=== PATIENT | female | born 1980 | race African-American/Black ===

== ENCOUNTER 2017-02-03 18:50 | Inpatient (IN) | payer MEDICAID ==
[2017-02-03 20:48] LABS: APPEARANCE,URINE CLEAR (CLEAR); GLUCOSE, URINE (UA) NEGATIVE (NEGATIVE); KETONES,URINE 15 mg/dL (NEGATIVE); LEUKOCYTE ESTERASE ,URINE NEGATIVE (NEGATIVE); OCCULT BLOOD,URINE NEGATIVE (NEGATIVE); PH,URINE 6.5 (5.0-8.0); PROTEIN,URINE NEGATIVE (NEGATIVE)
[2017-02-03 20:53] LABS: ADD UA MICROSCOPIC NO
[2017-02-03] MEDS ORDERED: AMPICILLIN SODIUM 2 GM/NS 100 ML IV ONE (21:30)
[2017-02-03] MEDS ORDERED: RINGERS SOLUTION,LACTATED 1,000 ML IV SCH (22:38)
[2017-02-03] MEDS ORDERED: RINGERS SOLUTION,LACTATED 1,000 ML IV PRN (22:38)
[2017-02-03] MEDS ORDERED: DINOPROSTONE 10 MG VAGINAL SUPPOSITORY VG ONE (22:45)
[2017-02-03] MEDS ORDERED: FentaNYL CITRATE-PF 100 MCG/2 ML VIAL IVP PRN (22:45)
[2017-02-03] MEDS ORDERED: CITRIC ACID/SODIUM CITRATE 30 ML SOLUTION UDCUP PO PRN (22:45)
[2017-02-03] MEDS ORDERED: METOCLOPRAMIDE HCL 5 MG/ML 2 ML VIAL IVP PRN (22:45)
[2017-02-03 23:32] LABS: BASOPHILS # (AUTO) 0.02 K/uL (0.00-0.20); BASOPHILS % (AUTO) 0.3 % (0.0-2.0); EOSINOPHILS # (AUTO) 0.06 K/uL (0.00-0.70); EOSINOPHILS % (AUTO) 1.04 % (1.0-6.0); HEMATOCRIT 28.1 % (36-46); HEMOGLOBIN 8.9 g/dL (12.0-16.0); LYMPHOCYTES # (AUTO) 0.9 K/uL (1.0-4.8); LYMPHOCYTES % (AUTO) 16.3 % (22.0-44.0); MEAN CORPUSCULAR HEMOGLOBIN 25.5 pg (26.0-34.0); MEAN CORPUSCULAR HGB CONC 31.7 G/dL (31.0-37.0); MEAN CORPUSCULAR VOLUME 81 fL (80-100); MONOCYTES # (AUTO) 0.3 K/uL (0.1-1.0); MONOCYTES % (AUTO) 6.1 % (2.0-9.0); NEUTROPHILS # (AUTO) 4.1 K/uL (1.8-7.7); NEUTROPHILS % (AUTO) 76.2 % (40.0-70.0); RED BLOOD CELL COUNT(AUTO) 3.49 MIL/uL (4.00-5.20); RED CELL DISTRIBUTION WIDTH 20.2 % (11.5-14.5); WHITE BLOOD COUNT (AUTO) 5.3 K/uL (4.5-11.0)
[2017-02-03 23:49] VITALS: BP 100/61
[2017-02-04 00:41] LABS: RUBELLA SCREEN (IGG) IMMUNE (IMMUNE)
[2017-02-04] MEDS ORDERED: AMPICILLIN SODIUM 1 GM/NS 50 ML IV SCH (01:30)
[2017-02-04] MEDS ORDERED: OXYGEN THERAPY IH SCH (08:00)
== END 2017-02-04 03:30 | disposition left against medical advice (07) | DRG 566 ==
LOC: 4S 18:50 → OBSVTOIN 18:50
PROVIDERS: ADMIT Obstetrics & Gynecology; ATTEND Obstetrics & Gynecology
DX: O76 Abnormality in fetal heart rate and rhythm complicating labor and delivery (principal); Z53.21 Procedure and treatment not carried out due to patient leaving prior to being seen by health care provider; O09.513 Supervision of elderly primigravida, third trimester; Z3A.36 36 weeks gestation of pregnancy
CPT/HCPCS: 76805; 80307; 86592; 86762; 86850; 86900; 86901; 87340; 89060; J0290; J7120

== ENCOUNTER 2023-11-07 14:19 | Emergency (ER) | payer MEDICAID ==
[~2023-11-07] VITALS: Ht 170.2 cm; Wt 90.9 kg
[2023-11-07 14:47] VITALS: BP 106/68; PULSE 108; RESP 19; TEMP 97.9; O2SAT 98
[2023-11-07] MEDS: METHOCARBAMOL 500 MG TABLET PO ONE (16:32)
[2023-11-07] MEDS: HYDROCODONE/ACETAMINOPHEN 5-325 MG TABLET PO ONE (16:32)
[2023-11-07] MEDS ORDERED: HYDR-4072 PO (18:39)
[2023-11-07] MEDS ORDERED: METH-659 PO (18:39)
== END 2023-11-07 21:44 | disposition home or self-care (01) ==
LOC: EMS 14:19
DX: S63.502A Unspecified sprain of left wrist, initial encounter (principal); V87.7XXA Person injured in collision between other specified motor vehicles (traffic), initial encounter; Y93.89 Activity, other specified; Y92.89 Other specified places as the place of occurrence of the external cause; Y99.8 Other external cause status
CPT/HCPCS: 99283

== ENCOUNTER 2023-11-17 16:08 | Emergency (ER) | payer MEDICAID ==
[~2023-11-17] VITALS: Ht 170.2 cm; Wt 100.0 kg
[~2023-11-17 16:08] MED LIST: HYDR-4072 PO; METH-659 PO
[2023-11-17 16:18] VITALS: BP 110/67; PULSE 106; RESP 18; TEMP 98; O2SAT 98
[2023-11-17] MEDS ORDERED: OXYC-38 PO (19:31)
[2023-11-17] MEDS: OxyCODONE HCL/ACETAMINOPHEN 5-325 MG TABLET PO ONE (19:39)
== END 2023-11-17 19:40 | disposition home or self-care (01) ==
LOC: EMS 16:08
DX: S63.502A Unspecified sprain of left wrist, initial encounter (principal); V89.2XXA Person injured in unspecified motor-vehicle accident, traffic, initial encounter; Y93.89 Activity, other specified; Y92.89 Other specified places as the place of occurrence of the external cause; Y99.8 Other external cause status
CPT/HCPCS: 99283